=== PATIENT | female | born 1950 | race Caucasian/White ===

== ENCOUNTER 2017-08-09 08:18 | Emergency (ER) | payer OTHER, MEDICARE ==
[~2017-08-09] VITALS: Ht 170.2 cm; Wt 108.9 kg
[2017-08-09 08:23] VITALS: BP 134/84
--- NOTE | 2017-08-09 08:24 | ED ANIMAL BITE/WOUND CHECK ---
History of Present Illness General Chief Complaint: Suture Removal/Wound Recheck Stated Complaint: TO HAVE ILDA REMOVED FROM HEAD Source: patient, old records Exam Limitations: no limitations Vital Signs & Intake/Output Vital Signs & Intake/Output Vital Signs Date Time Temp Pulse Resp B/P B/P Pulse O2 O2 Flow FiO2 Mean Ox Delivery Rate 08/09 0823 98.9 84 16 134/84 98 Room Air Allergies Coded Allergies: No Known Allergies (08/03/17) Triage Nurses Notes Reviewed? yes Onset: Abrupt Duration: day(s): (6) Timing: no prior history Injury Environment: home Is Injury an Animal Bite? No Severity: mild HPI: Patient is a 67-year-old female presenting to the emergency department with chief complaint of staple removal. She was seen 6-1/2 days ago for a head laceration and ilda were placed. Told to come back in 6-7 days for staple removal. She reports wound has been healing up well. No headaches. No visual changes. Denies any nausea or vomiting fevers or chills chest pain or shortness of breath. No complaints. Past History Travel History Traveled to [place] past 21 day No Medical History Any Pertinent Medical History? see below for history Neurological: seizure Cardiovascular: hypertension, hyperlipidemia Endocrine: hypothyroidism Tetanus Vaccine: 08/03/17 Surgical History Surgical History: none Psychosocial History What is your primary language Green[place]ic Family History Hx Contributory? No Review of Systems Review of Systems Constitutional: Reports: no symptoms. Comments Review of systems: See HPI, All other systems negative. Constitutional, no chills fever or weight loss HEENT: No visual changes no sore throat no congestion Cardiovascular: No chest pain ,palpitation Skin, no jaundice no rashes Respiratory: No dyspnea cough GI: No nausea no vomiting Muscle skeletal: no back pain, no neck pain, Neurologic: No numbness no confusion, no headaches Psych: No stress anxiety Immunology: No splenectomy or history of AIDS Physical Exam Physical Exam General Appearance: well developed/nourished, no apparent distress, alert, awake , comfortable Comments: Well-developed well-nourished person in no acute distress HEENT: Pupils equally round and reactive to light and accommodation. Nose is atraumatic. Neck: Normal inspection Respiratory: No respiratory distress. Extremity: No edema,. Neuro: Alert oriented x3 Skin: Healing laceration approximately 3-4 cm in size in the posterior aspect of the scalp with [address] No surrounding erythema or edema. Wound appears to be well approximated. Scalp formation present. Psych: Mood and affect is normal, memory and judgment is normal. Progress Differential Diagnosis: WOUND CHECK, SUTURE REMOVAL Plan of Care: 7 [place] removed without difficulty. Patient tolerated procedure well. Departure Departure Time of Disposition: 822 Disposition: HOME OR SELF CARE Condition: Stable Clinical Impression Primary Impression: Removal of staple Referrals: Jay RAMOS,Minor Benavides (PCP/Family) Additional Instructions: Follow-up with your primary care physician in 5-7 days for a recheck. Return for worsening symptoms or concerns. Be careful when brushing YOUR hair as the wound is still healing. Departure Forms: Customer Survey General Discharge Information
== END 2017-08-09 08:31 ==
LOC: ERH 08:18
DX: Z48.02 Encounter for removal of sutures (principal)